=== PATIENT | female | born 1985 | race African-American/Black ===

== ENCOUNTER 2017-04-13 10:40 | Emergency (ER) | payer OTHER ==
[2017-04-13 10:52] VITALS: BP 127/83
--- NOTE | 2017-04-13 11:32 | XRAY Preliminary Report ---
Exam: XR Wrist 4 View LT IMPRESSION: Normal wrist radiography. [facility] SITE ID: [id number]
--- NOTE | 2017-04-13 11:35 | XRAY Report ---
EXAM: LEFT WRIST RADIOGRAPHY EXAM DATE: 04/13/2017 11:09 AM. CLINICAL HISTORY: Injury. Pain. COMPARISON: None. TECHNIQUE: 4 views. FINDINGS: Bones: Normal. No fractures or bone lesions. Joints: Normal. No subluxations. Soft Tissues: No focal soft tissue swelling. IMPRESSION: Normal wrist radiography. [facility] Referring Provider Line: [phone] SITE ID: [id number]
--- NOTE | 2017-04-13 13:07 | ED Physician Documentation ---
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 some swelling otherwise well denies preg Review of Systems Musculoskeletal: reports: Joint pain PD PAST MEDICAL HISTORY - Past Medical History Past Medical History: No - Past Surgical History Past Surgical History: No - Present Medications Home Medications: Ambulatory Orders Medication Instructions Recorded Confirmed No Known Home Medications [No 04/13/17 04/13/17 Known Home Medications] - Allergies Allergies/Adverse Reactions: Allergies Allergy/AdvReac Type Severity Reaction Status Date / Time No Known Drug Allergies Allergy Verified 04/13/17 10:52 - Social History Does the pt smoke?: No Smoking Status: Never smoker Does the pt drink ETOH?: No Does the pt have substance abuse?: No - Immunizations Immunizations are current?: Yes - POLST Patient has POLST: No PD ED PE NORMAL - Vitals Vital signs reviewed: Yes - Cardiac Cardiac: RRR - Respiratory Respiratory: No respiratory distress, Clear bilaterally - Extremities Extremities: Other (L wrist some swelling dorsal, mild TTP dorsal, no snuff box TTP, hand NT, MSV intact, pain with flexion) Results - Vitals Vitals: Vital Signs - 24 hr 04/13/17 10:48 Temperature 36.6 C Heart Rate 81 Respiratory 18 Rate Blood Pressure 127/83 H O2 Saturation 99 Oxygen O2 Source Room air - Rads (name of study) xray Radiology: See rad report (neg) Departure - Departure Disposition: 01 Home, Self Care Clinical Impression: Left wrist sprain Qualifiers: Encounter type: initial encounter Qualified Code(s): S63.502A - Unspecified sprain of left wrist, initial encounter Condition: Good Instructions: ED Splint Care Velchristian, ED Sprain Wrist Comments: The xray is fine - no fracture is seen - if the pain persists more than two weeks, please follow up with your PMD for consideration of further imaging Wear the splint for support and comfort Ice and motrin as needed for the pain Forms: Activity restrictions
== END 2017-04-13 13:22 | disposition home or self-care (01) ==
LOC: ED 10:40
DX: S63.502A Unspecified sprain of left wrist, initial encounter (principal); X50.1XXA Overexertion from prolonged static or awkward postures, initial encounter; Y93.F2 Activity, caregiving, lifting; Y99.0 Civilian activity done for income or pay
CPT/HCPCS: 99283